=== PATIENT | female | born 2000 | race Caucasian/White ===

== ENCOUNTER 2021-10-21 12:13 | Emergency (ER) | payer BC, SELFPAY ==
--- NOTE | 2021-10-21 12:32 | ED.FEMALEGU ---
HPI - Female Genitourinary General Chief complaint: Urogenital-Female Stated complaint: blood in urine,painful urination Time Seen by Provider: 10/21/21 12:32 Source: patient and RN notes reviewed Mode of arrival: ambulatory Limitations: no limitations History of Present Illness HPI Narrative: 21-year-old female presented for complaints of blood in urine, onset today. She endorses for the past few days some burning with urination and frequency. She endorses about 5 UTIs in the past year. She denies associated abdominal pain, nausea, vomiting, diarrhea, constipation, flank pain, vaginal discharge, fevers or chills. Denies trauma to kidneys. Has not lifted weights in 1 week. Patient is sexually active, has IUD, LMP 1 week ago. Denies concern for STD. Related Data Allergies Allergy/AdvReac Type Severity Reaction Status Date / Time No Known Allergies Allergy Verified 10/21/21 12:24 Review of Systems Review of Systems: CONSTITUTIONAL: Denies body aches, fever, chills, or sweats. CARDIOVASCULAR: Denies chest pain, palpitations, or edema. RESPIRATORY: Denies cough or dyspnea. GASTROINTESTINAL: Denies abdominal pain, nausea, vomiting, or diarrhea. GENITOURINARY: Reports dysuria, frequency, hematuria SKIN: Denies rash, itching, or wounds. MUSCULOSKELETAL: Denies back pain or myalgia. PMFSH Comments At time of signature, I have reviewed and agree with nursing past medical, surgical, social and family history unless otherwise noted. Please see nursing chart for further information. There is no relevant family history pertinent to the presenting complaint Exam Narrative: GENERAL: Well-appearing ENT: Mucous membranes pink and moist. CHEST: No respiratory distress. Clear to auscultation. HEART: Regular rate and rhythm. ABDOMEN: Soft, nontender, nondistended, normal active bowel sounds. No CVA tenderness MUSCULOSKELETAL: No bony tenderness. SKIN: Warm, dry, no rash. NEURO: Alert and oriented x3. Course Course Emergency Course: Patient is aware of diagnosis, understands and agrees to treatment plan. Anticipatory guidance given. Portions of this record may have been created with voice recognition software Level of Care: Express Care Visit Vital Signs Vital signs: Reviewed Transfer Transfered to: [place] Transportation: Other (Private vehicle) Transfer rationale: Pt is agreeable to transfer to ER for further evaluation of gross hematuria. Requests transfer to [facility] via private vehicle. Risks of transportation reviewed with pt including injury, worsening of condition and . v/u. Report called to [facility], spoke with Skylar [employer], accepting physician. Pt is in stable condition at time of transfer. Advised to remain NPO and go directly to the hospital. MDM - Female Genitourinary MDM Narrative Medical decision making narrative: Urine results reviewed, gross hematuria. PE unremarkable. Pt is advised to go to the ER for further evaluation. v/u. Differential Diagnosis Differential diagnosis: Likely urinary tract infection, cervicitis and cystitis Lab Data Labs: Urine Glucose Trace Reference Range: Negative Urine Bilirubin 3+ Reference Range: Negative Urine Ketone 2+ Reference Range: Negative Urine Specific [place] 1.015 Reference Range:1.001-1.035 Urine Blood 3+ Reference Range: Negative * * Urine pH 6.0 Reference Range: 5.0-9.0 Urine Protein 3+
[2021-10-21 13:17] VITALS: BP 144/76; PULSE 99; RESP 16; TEMP 37.3; O2SAT 100
== END 2021-10-21 13:18 | disposition short-term general hospital (02) ==
PROVIDERS: Emergency Provider Nurse Practitioner Family
DX: R31.0 Gross hematuria (principal)
CPT/HCPCS: 81003; 87086; 87088; 99212; G0463

== ENCOUNTER 2021-10-21 13:11 | Emergency (ER) | payer BC, SELFPAY ==
--- NOTE | ~2021-10-21 | CT_ITS ---
EXAMINATION: CT abdomen pelvis wo con DATE: 10/21/2021 15:15 INDICATION: left flank pain TECHNIQUE: Computed tomography (CT) of the abdomen and pelvis was performed without intravenous contr ast. Automated exposure control and iterative reconstruction technique were employed. The dose-length product was 197.60 mGy-cm. COMPARISON: None. FINDINGS: Lower thorax: Unremarkable Liver: Normal. Biliary/Gallbladder: Gallbladder is collapsed. No bile duct dilation. Pancreas: No mass or duct dilation. Spleen: Normal. Adrenals:No mass. Kidneys: No mass, stone, or hydronephrosis. Ureters incompletely evaluated, with no calcification tere ng the expected course. GI tract: No small or large bowel dilation. Appendix normal. Mesentery/Peritoneum: No ascites, mass, or free air. Retroperitoneum: No mass. Pelvis: Pelvic organs are within normal limits. Ureters incompletely evaluated, with no calcification along the expected course. Soft Tissues: Soft tissues and body wall unremarkable. Bones: No acute osseous finding. IMPRESSION: Exam limited by lack of contrast and paucity of intra-abdominal fat. No acute abdominopelvic process detected. Reviewed, dictated and finalized at location K.
[2021-10-21 13:15] VITALS: BP 127/75; PULSE 105; RESP 16; TEMP 36.8; O2SAT 99
--- NOTE | 2021-10-21 13:19 | ED.FEMALEGU ---
HPI - Female Genitourinary General Chief complaint: Urogenital-Female Stated complaint: hematuria Time Seen by Provider: 10/21/21 13:19 History of Present Illness HPI Narrative: pt says woke up with frequency and burning with urination like past uti's but lots of blood no abd pain/nv/d/f/flank pain no h/o kidney stones/preg/trauma/heat exposure and no family h/o kidney stones went to and sent here b/c so much blood in urine Related Data Allergies Allergy/AdvReac Type Severity Reaction Status Date / Time No Known Allergies Allergy Verified 10/21/21 13:54 Review of Systems Constitutional: Comments: CONSTITUTION Denies fever, chills, or sweats. EYES: Denies visual changes, redness, or discharge. ENT: Denies rhinorrhea, congestion, sore throat, or otalgia. CARDIOVASCULAR: Denies chest pain, palpitations, or edema. RESPIRATORY: Denies cough or dyspnea. GASTROINTESTINAL: Denies abdominal pain, nausea, vomiting, or diarrhea. GENITOURINARY: has frequency dysuria or hematuria. SKIN: Denies rash or itching. MUSCULOSKELETAL: Denies back pain, joint pain, or myalgia. NEUROLOGIC: Denies headache, numbness, or weakness. PSYCHIATRIC: Denies anxiety or depression. Exam Const: Other: APPEARANCE: Well appearing, no pain in distress, well-nourished. Head normocephalic atraumtaic. EYES: PERRLA/EOMI, conjunctivae very clear. NOSE: Normal no drainage EARS:TMS clear Misael Duggan, with good light reflex. THROAT: Pharynx clear, no exudate. NECK: Supple. No adenopathy, no masses. RESPIRATORY: Airway patent, repsirations nonlabored. Clear to auscultation bilaterally, no rales, rhonchi, wheezing. CARDIOVASCULAR: Regular rate and rhythm without murmurs rubs or gallops. ABDOMINAL: Soft, nontender, nondistended, no hepatosplenomegally MUSCULOSKELETAl: Moves all extremities. Strenght/ROM intact, No edema, No calf tenderness. NEURO: Alert. Cranial nerves II through XII intact. Good gait. Good coordination SKIN:: Warm, dry. Normal Color PSYCHIATRIC: Normal affect/mood, normal interaction with parents. Course Course Emergency Course: pt updated good with plan Vital Signs Vital signs: Vital Signs Temperature 36.8 C 10/21/21 13:15 Pulse Rate 105 H 10/21/21 13:15 Respiratory Rate 16 10/21/21 13:15 Blood Pressure 127/75 10/21/21 13:15 Pulse Oximetry 99 10/21/21 13:15 Oxygen Delivery Room Air 10/21/21 13:15 Temperature 36.8 C 10/21/21 13:15 Pulse Rate 105 H 10/21/21 13:15 Respiratory Rate 16 10/21/21 13:15 Blood Pressure 127/75 10/21/21 13:15 Pulse Oximetry 99 10/21/21 13:15 Oxygen Delivery Room Air 10/21/21 13:15 MDM - Female Genitourinary Lab Data Result diagrams: 10/21/21 13:56 10/21/21 13:56 Labs: Lab Results 10/21/21 10/21/21 10/21/21 Range/Units 13:56 13:56 13:56 WBC 9.6 (4.5-10.0) K/mm3 RBC 4.69 (4.2-5.4) M/mm3 Hgb 14.4 (12.0-15.0) g/dL Hct 42.7 (37.0-47.0) % MCV 91.0 (80-100) fl MCH 30.7 (26-34) pg MCHC 33.7 (32-36) g/dl RDW 11.8 (11.5-14.5) % Plt Count 279 (150-375) k/mm3 MPV 9.4 (7.4-10.4) fl Immature Gran % (Auto) 0.1 (0-0.5) % Neut % (Auto) 68.3 (45.5-73.1) % Lymph % (Auto) 23.1 (18.3-44.2) % [place] % (Auto) 8.0 (2.6-8.5) % Eos % (Auto) 0.3 (0-4.4) % Baso % (Auto) 0.2 (0.2-1.2) % Lymph # (Auto) 2.22 (0.9-3.2) K/mm3 [place] # (Auto) 0.8 H (0.1-0.6) K/mm3 Eos # (Auto) 0.0 (0-0.3) K/mm3 Baso # (Auto) 0.0 (0.0-0.1) K/mm3 Abs Immat Gran (auto) 0.01 (0.00-0.031) K/mm3 Absolute Neuts (auto) 6.6 (1.3-6.7) K/mm3 Absolute Nucleated RBC 0.0 (0.0-0.012) K/mm3 Nucleated RBC % 0.0 (0.0-0.2) % Sodium 138 (137-145) mmol/L Potassium 3.9 (3.4-5.0) mmol/L Chloride 103 (98-107) mmol/L Carbon Dioxide 28 (22-30) mmol/L Anion Gap 7 L (8-16) mmol/L BUN 13 (7-17) mg/dL Creatinine 0.90 (0.7-1.0) mg/dL Estim Creat Clear Calc
[2021-10-21] MEDS: SODIUM CHLORIDE 0.9% IV 1,000 ML 999 ML IV CONT (14:01)
[2021-10-21 14:13] LABS: Basophils Percent Auto 0.2 % (0.2-1.2); Eosinophils Percent Auto 0.3 % (0-4.4); Hematocrit 42.7 % (37.0-47.0); Hemoglobin 14.4 g/dL (12.0-15.0); Immature Granulocyte Absolute 0.01 K/mm3 (0.00-0.031); Immature Granulocyte Percent A 0.1 % (0-0.5); Lymphocytes Absolute Auto 2.22 K/mm3 (0.9-3.2); Lymphocytes Percent Auto 23.1 % (18.3-44.2); Mean Corpuscular HGB Conc 33.7 g/dl (32-36); Mean Corpuscular Hemoglobin 30.7 pg (26-34); Mean Platelet Volume 9.4 fl (7.4-10.4); Monocytes Absolute Auto 0.8 K/mm3 (0.1-0.6); Neutrophils Absolute Auto 6.6 K/mm3 (1.3-6.7); Neutrophils Percent Auto 68.3 % (45.5-73.1); Platelet Count Result 279 k/mm3 (150-375); Red Blood Count 4.69 M/mm3 (4.2-5.4); Red Cell Distribution Width 11.8 % (11.5-14.5); White Blood Count 9.6 K/mm3 (4.5-10.0)
[2021-10-21 14:20] LABS: Alanine Aminotransferase 14 U/L (6-35); Albumin Level 5.1 g/dL (3.5-5.1); Alkaline Phosphatase 74 U/L (38-126); Anion Gap 7 mmol/L (8-16); Aspartate Amino Transferase 26 U/L (14-36); Bilirubin,Total 0.9 mg/dL (0.2-1.3); Blood Urea Nitrogen 13 mg/dL (7-17); Calcium 9.3 mg/dL (8.4-10.2); Carbon Dioxide 28 mmol/L (22-30); Chloride 103 mmol/L (98-107); Estimated CRCL calculation 72 ml/min; Estimated Glomerular Filt Rate > 60; Glucose 89 mg/dL (65-110); Potassium 3.9 mmol/L (3.4-5.0); Sodium 138 mmol/L (137-145)
[2021-10-21 14:21] LABS: Add Urine Microscopic? YES; Appearance Urine Cloudy (Clear); Bilirubin Urine 1+ (Negative); Blood Urine 3+ (Negative); Color Urine Red (Yellow); Glucose Urine UA Negative (Negative); Ketones Urine Negative (Negative); Leukocyte Esterase Ur 1+ LEU/UL (Negative); Nitrate Urine Negative (Negative); Protein Urine 3+ mg/dL (Negative); Specific Grav Ur 1.025 (1.001-1.035)
[2021-10-21 14:27] LABS: Bacteria Urine Trace /hpf; Mucus Urine Rare /lpf; RBC Urine >75 /hpf (0-2); WBC Urine >75 /hpf
[2021-10-21 14:57] LABS: Pregnancy On Board Control Positive; Urine Pregnancy Test Negative
[2021-10-21] MEDS: NITROFURANTOIN MONOHYD MACROCR 100 MG CAP (15:57)
== END 2021-10-21 15:58 | disposition home or self-care (01) ==
PROVIDERS: Emergency Provider Emergency Medicine
DX: N39.0 Urinary tract infection, site not specified (principal); R31.0 Gross hematuria; R30.0 Dysuria
CPT/HCPCS: 36415; 74176; 80053; 81001; 81025; 85025; 96361; 96365; 99284; A9270; J0696; J7030

== ENCOUNTER 2023-11-02 13:41 | Outpatient (CLI) | payer BC, SELFPAY ==
--- NOTE | ~2023-11-02 | US_ITS ---
US pelvic complete w TV Ordering provider: Fatmata Gomez, LESLIE History: . pelvic pain . Comparison: None. Technique: Transabdominal and endovaginal ultrasound of the pelvis (Doppler ultrasound interrogation techniques used as needed for this exam.) FINDINGS: CERVIX: Normal. UTERUS: Measures 6.8x 4.1x 3.2 cm in length which is within normal limits and is anteverted. No myom etrial masses. ENDOMETRIUM: Normal in thickness measuring 3 mm. IUD is seen in the uterine cavity. CUL DE SAC: No free fluid. RIGHT OVARY: Normal in size measuring 2.8x 1.9x 2.2 cm. Normal echotexture. Doppler vascular flow pre sent. LEFT OVARY: Normal in size measuring 1.9x 2x 2.4 cm. Normal echotexture. Doppler vascular flow presen t. ADNEXA: Normal. No mass. IMPRESSION: normal pelvic ultrasound. Reviewed, dictated and finalized at location A. IMPRESSION: normal pelvic ultrasound.
== END 2023-11-02 13:42 ==
LOC: GOSHIMG 13:44
PROVIDERS: PCP Nurse Practitioner Women's Health; Visit Provider Nurse Practitioner Women's Health
DX: R10.2 Pelvic and perineal pain (principal)
CPT/HCPCS: 76830; 76856